=== PATIENT | male | born 1960 | race Two or more races ===

== ENCOUNTER 2019-11-06 09:00 | Inpatient (IN) | payer OTHER ==
[~2019-11-06] VITALS: Ht 167.6 cm; Wt 84.8 kg
[2019-11-06] MEDS ORDERED: ZESTRIL20 MG PO (10:22)
[2019-11-06] MEDS ORDERED: TAMS0.4C PO (10:23)
[2019-11-06] MEDS ORDERED: PROTONIX40 MG PO (10:23)
[2019-11-06] MEDS ORDERED: VOLTAREN PO (10:24)
[2019-11-10] MEDS ORDERED: DICLOFENAC POTA50 MG PO (08:52)
[2019-11-10] MEDS ORDERED: NORVASC5 MG PO (08:53)
== END 2019-11-13 12:43 | disposition home or self-care (01) | DRG 708 ==
LOC: SURG 11-10 05:34 → O/R 11-10 05:34 → SURH 11-10 07:00 → O/R 11-10 09:00 → SURG 11-10 14:34
PROVIDERS: ADMIT Urology; ATTEND Urology
PROC: 07TC0ZZ Resection of Pelvis Lymphatic, Open Approach (ICD-10-PCS; 2019-11-10)
PROC: 0VT00ZZ Resection of Prostate, Open Approach (ICD-10-PCS; principal; 2019-11-10 07:00)
DX: C61 Malignant neoplasm of prostate (principal)